=== PATIENT | female | born 1950 | race Caucasian/White ===

== ENCOUNTER 2017-09-29 06:40 | Emergency (ER) | payer MEDICARE, MEDICAID ==
[~2017-09-29] VITALS: Ht 165.1 cm; Wt 80.0 kg
[2017-09-29] MEDS ORDERED: PROMETHAZINE/DEXTROMETHORPHAN 6.25-15MG/5ML BOTTLE 120ML PO PRN (07:15)
[2017-09-29] MEDS ORDERED: IBUPROFEN 600MG TABLET PO ONE (07:15)
[2017-09-29 08:09] VITALS: BP 161/68
== END 2017-09-29 08:12 | disposition home or self-care (01) ==
LOC: ER 07:00
DX: J20.9 Acute bronchitis, unspecified (principal); Z90.49 Acquired absence of other specified parts of digestive tract; Z85.9 Personal history of malignant neoplasm, unspecified
CPT/HCPCS: 99283